=== PATIENT | female | born 1990 | race Caucasian/White ===

== ENCOUNTER 2017-04-17 17:05 | Observation (INO) | payer OTHER ==
[~2017-04-17] VITALS: Ht 160 cm; Wt 97.4 kg
[2017-04-17] MEDS ORDERED: VITAMIN D 1001000 IU (17:48)
[2017-04-17] MEDS ORDERED: SYNTHROID0.088 MG/T PO (17:49)
[2017-04-17 17:59] VITALS: BP 116/63; PULSE 70; TEMP 97.7
[2017-04-17 22:11] VITALS: BP 115/64; PULSE 57; TEMP 97.8
[2017-04-18 02:17] VITALS: BP 103/57; PULSE 79; TEMP 98.4
[2017-04-18 05:42] VITALS: BP 92/44; PULSE 64; PULSE 84; TEMP 97.9; TEMP 99.3
[2017-04-18 10:23] VITALS: BP 99/59; PULSE 61; TEMP 98.6
[2017-04-18 14:51] VITALS: BP 113/61; PULSE 75; TEMP 98
[2017-04-18 15:01] VITALS: BP 116/74; PULSE 56; TEMP 98
== END 2017-04-18 16:43 | disposition home or self-care (01) ==
LOC: SURG 17:05
DX: N20.1 Calculus of ureter (principal); F17.290 Nicotine dependence, other tobacco product, uncomplicated; J45.909 Unspecified asthma, uncomplicated; Z82.49 Family history of ischemic heart disease and other diseases of the circulatory system
CPT/HCPCS: C1769; C1894; C2617; G0378; J0690; J1100; J1170; J1885; J2270; J2405; J2704; J3010; J7030; J7120; Q9967